=== PATIENT | male | born 1980 | race African-American/Black ===

== ENCOUNTER 2016-12-21 17:07 | Emergency (ER) | payer SELFPAY ==
[~2016-12-21] VITALS: Ht 188 cm; Wt 77.0 kg
[~2016-12-21 17:07] MED LIST: Z.0.NO CURRENT MEDS
[2016-12-21 17:08] VITALS: BP 171/96; PULSE 55; RESP 16; TEMP 97.7; O2SAT 98
--- NOTE | 2016-12-21 17:28 | PD ---
Physical Exam Date Seen by Provider: Dec 21, 2016 Time Seen by Provider: 17:27 Narrative 36 yo male here for pain to the left upper jaw. Has had this for all day. Giving him a headache. No fevers. per patient coming from a tooth. pain is 10/ 10. No injuries. Started today. Vitals are stable. Awaiting bed placement. Data Data Last Documented VS Vital Signs Date Time Temp Pulse Resp B/P Pulse Ox O2 Delivery O2 Flow Rate FiO2 12/21/16 17:08 97.7 55 16 171/96 98 MDM Medical Record Reviewed: Yes Supervised Visit with NITZA: No Gulshan Liu Dec 21, 2016 17:28
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
[2016-12-21] MEDS ORDERED: IBUP800T23 PO (17:35)
[2016-12-21] MEDS ORDERED: MAGICADU2 SWISH-SWAL (17:35)
[2016-12-21] MEDS ORDERED: CLIN1CAP5 PO (17:35)
[2016-12-21] MEDS ORDERED: TRAM50TA PO (17:35)
[2016-12-21] MEDS ORDERED: CLINDAMYCIN PHOS 600 MG/4 ML VIAL IM ONE (17:45)
[2016-12-21] MEDS ORDERED: KETOROLAC TROMETHAMINE 60 MG/2 ML (IM) VIAL IM ONE (17:45)
== END 2016-12-21 18:06 | disposition home or self-care (01) ==
LOC: NEPK 17:07
DX: K04.7 Periapical abscess without sinus (principal); F17.210 Nicotine dependence, cigarettes, uncomplicated
CPT/HCPCS: 96372; 99284; J1885

== ENCOUNTER 2017-07-27 17:10 | Emergency (ER) | payer SELFPAY ==
[~2017-07-27] VITALS: Ht 188 cm; Wt 81.5 kg
[2017-07-27 17:10] VITALS: BP 142/80; PULSE 67; RESP 16; TEMP 99.7; O2SAT 100
[~2017-07-27 17:10] MED LIST changes: +CLIN150C14 PO; +IBUP1TAB7 PO; +MAGICADU2 SWISH-SWAL; +TRAM50TA PO; -Z.0.NO CURRENT MEDS
[2017-07-27] MEDS ORDERED: AMOX500T PO (20:07)
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
[2017-07-27] MEDS ORDERED: KETOROLAC TROMETHAMINE 60 MG/2 ML (IM) VIAL IM ONE (20:15)
[2017-07-27] MEDS ORDERED: AMOXICILLIN (TRIHYDRATE) 500 MG CAP PO ONE (20:15)
== END 2017-07-27 20:24 | disposition home or self-care (01) ==
LOC: NEPK 17:10
DX: K04.7 Periapical abscess without sinus (principal); Z72.0 Tobacco use
CPT/HCPCS: 96372; 99284; J1885